=== PATIENT | female | born 1985 | race Two or more races ===

== ENCOUNTER 2022-06-06 10:25 | Emergency (ER) | payer OTHER ==
[~2022-06-06] VITALS: Ht 162.6 cm; Wt 57.6 kg
[2022-06-06] MEDS ORDERED: KETO10TA2 PO (14:54)
[2022-06-06] MEDS ORDERED: TUSSI PRES-B L480 ML PO (14:54)
[2022-06-06] MEDS ORDERED: NORFLEX100MG PO (14:54)
== END 2022-06-06 15:02 | disposition home or self-care (01) ==
LOC: ER 10:25
DX: B34.9 Viral infection, unspecified (principal); M54.9 Dorsalgia, unspecified